=== PATIENT | male | born 1945 | race Hispanic/Latino ===

== ENCOUNTER 2019-04-12 08:47 | Emergency (ER) | payer OTHER ==
--- NOTE | 2019-04-12 10:23 | RAD REPORT ---
EXAM DESCRIPTION: CT - CTHCSPWOC - 04/12/2019 9:46 am CLINICAL HISTORY: fall, unwitnessed fall, head and neck injury, history of recent lumbar fracture COMPARISON: No comparisons TECHNIQUE: Axial 5 mm thick images of the head were obtained. Axial 2 mm thick images of the cervic al spine were obtained with sagittal and coronal reconstruction images generated and reviewed. All CT scans are performed using dose optimization technique as appropriate and may include automated exposure control or mA/KV adjustment according to patient size. FINDINGS: No intracranial hemorrhage, mass, edema or acute intracranial finding. No suspicion for ac [place] infarction. Patient has very advanced for age atrophy and chronic ischemic change. Ventricles are prominent but probably still in proportion to the amount of volume loss. Arterial and physiologic ca lcifications are present. Mastoid air cells and paranasal sinuses are clear. No globe or orbit abnorm ality seen. Prominent arterial calcifications are present. A very tortuous and ectatic basilar artery is seen. This is not an acute process. Cervical body height and alignment are normal. No disk space narrowing. No fracture or acute bony abn ormality. Prominent facet joint degenerative changes are present on the left at C3-4 Central canal de tail is inherently limited. No paraspinal mass or hematoma. The partially visualized esophagus is dilated and filled with but is presumed to be food content. Sma ll amount of this material is seen in the left-side piriform sinus. None of this food material is edgar omayra seen below the vocal cord level. The esophagus has an unusual configuration. No history of colon ic interposition or gastric pull-through procedure. IMPRESSION: Advanced atrophy and chronic ischemic change with no acute intracranial finding. Cervical spine degenerative change with no acute finding. Dilated esophagus is present filled with food material. There is food material along the posterior as pect of the lower oropharynx extending to the piriform sinus on the left. Aspiration risk is consider ed high. The dilated appearance is unusual. Correlation is needed with any esophageal surgical history. Esopha missy is only partially visualized.
--- NOTE | 2019-04-12 11:12 | RAD REPORT ---
EXAM DESCRIPTION: RAD - Pelvis - 04/12/2019 10:37 am CLINICAL HISTORY: fall, left hip and leg pain COMPARISON: Hip Left 2 View dated 04/12/2019 TECHNIQUE: AP imaging of the pelvis was obtained. FINDINGS: No fracture of the bony pelvis. SI joints and sacral ala show no suspicious findings. Alyse l content does somewhat obscure sacral ala assessment. Minimal pubic symphysis degenerative change no sae. No acute finding of the right hip joint. Left proximal femur shows intertrochanteric fracture. No dislocation of the femoral head. A femoral n deuce fracture is not seen. Fracture appears to be contained within the intertrochanteric region. No pa thologic component seen. IMPRESSION: Left femur intertrochanteric fracture.
--- NOTE | 2019-04-12 11:13 | RAD REPORT ---
EXAM DESCRIPTION: RAD - Hip Left 2 View - 04/12/2019 10:37 am CLINICAL HISTORY: fall, left-sided pelvic and hip pain COMPARISON: No comparisons FINDINGS: AP and cross-table lateral views were obtained. Proximal left femur fracture is present. This seen as an oblique intertrochanteric fracture that exte nds from the superolateral margin of the greater trochanter inferiorly extending 2 cm below the lesse r trochanter. No significant distraction or angulation deformity. The femoral head on the left is not dislocated and fracture of the neck is not seen. No pathologic bone changes are identifiable. No significant soft tissue finding. IMPRESSION: Left femur intertrochanteric fracture as detailed.
--- NOTE | 2019-04-12 12:16 | RAD REPORT ---
EXAM DESCRIPTION: Yves Single View04/12/2019 12:02 pm CLINICAL HISTORY: Chest pain COMPARISON: None FINDINGS: The lungs appear clear of acute infiltrate. The heart is mildly enlarged. Pacemaker leads are in place. Rectangular density overlies the left chest presumably overlying artifact
--- NOTE | 2019-04-12 12:17 | ER ---
Nurse's Notes [facility] Name: Barney De La Cruz Age: 73 yrs Sex: Male : 1945 Arrival Date: 04/12/2019 Time: 08:51 Bed 15 Private MD: Diagnosis: Intertrochanteric fracture of femur;Fall Presentation: 04/12 08:55 Presenting complaint: retirement reports unwitnessed fall from standing today, hb currently in rehab for recent lumbar fx, was not wearing back brace at time of fall. Outward rotation of left left noted. Pt AOx2 at baseline. Transition of care: patient was received from another setting of care (long-term care facility), [facility]. Onset of symptoms was April 12, 2019. Risk Assessment: Do you want to hurt yourself or someone else? Patient reports no desire to harm self or others. Care prior to arrival: None. 08:55 Method Of Arrival: EMS: [facility] 08:55 Acuity: JENARO 2 09:00 Mechanism of Injury: Fall from standing position. Trauma event details: Injury occurred ph in the [facility], Injury occurred: in an institution. Injury occurred: April 12, 2019. 10:02 Initial Sepsis Screen: Does the patient meet any 2 criteria? No. Patient's initial ph sepsis screen is negative. Does the patient have a suspected source of infection? No. Patient's initial sepsis screen is negative. Trauma Activation: Alert Physician: ED Physician; Name: ; Notified At: ; Arrived At: Physician: General Surgeon; Name: ; Notified At: ; Arrived At: Physician: Radiology; Name: ; Notified At: ; Arrived At: Physician: Respiratory; Name: ; Notified At: ; Arrived At: Physician: Lab; Name: ; Notified At: ; Arrived At: Historical: - Allergies: 12:47 Strawberries; ph - PMHx: 12:47 Dementia; Hypertension; Depression; ph - Immunization history:: Adult Immunizations up to date. - Coronavirus screen:: The patient has NOT traveled to [place] in the past 14 days. The patient has NOT had contact with known/suspected case of Coronavirus?. - Immunization history: Last tetanus immunization: unknown. - Social history:: Smoking status: unknown. - Ebola Screening: : No symptoms or risks identified at this time. Screenin:58 Abuse screen: Denies threats or abuse. Denies injuries from another. Nutritional ph screening: No deficits noted. Tuberculosis screening: No symptoms or risk factors identified. Fall Risk Fall in past 12 months (25 points). Secondary diagnosis (15 points) dementia, No IV (0 pts). Ambulatory Aid- None/Bed Rest/Nurse Assist (0 pts). Gait- Impaired (20 pts.). Mental Status- Overestimates/Forgets Limitations (15 pts.). Total Goldsmith Fall Scale indicates High Risk Score (45 or more points). Fall prevention measures have been instituted. Side Rails Up X 2 Placed Close to Nursing Station Frequent Obs/Assessments Occuring Family Present and informed to notify staff if the need to leave the bedside As available patient and family educated on Fall Prevention Program and Strategies. Primary Survey: 09:00 NO uncontrolled hemorrhage observed. A: The patient needs verbal stimulation to ph respond. Airway: patent, No supplemental oxygen in use on arrival. Oral cavity: clear, Trachea midline. Breathing/Chest: Respiratory pattern: regular, Respiratory effort: spontaneous, unlabored, Chest inspection: symmetrical rise and fall of the chest. Circulation: Skin color: pink, Skin temperature: warm, dry. Disability Alert. Exposure/Environment: There is no evidence of uncontrolled external bleeding. No obvious injuries are noted at this time. 11:00 Reassessment Airway Airway Patent Oxygen No O2 Breathing/Chest Respiratory pattern ph Regular Respiratory effort Spontaneous Unlabored Chest inspection Symmetrical Circulation Color [place] Temperature Warm Dry. Assessment: 09:00 General: Appears in no apparent distress. comfortable, Behavior is calm, cooperative. ph Pain: Complains of pain in left knee. Neuro: Oriented to. Neuro: Level of Consciousness is awake, alert, obeys commands, Oriented to person. Cardiovascular: Capillary refill < 3 seconds in bilateral fingers Patient's skin is warm and dry. Respiratory: Airway is patent Respiratory effort is even, unlabored, Respiratory pattern is regular, symmetrical. Derm: Skin is fragile, is thin, Skin is pink, warm \T\ dry. Musculoskeletal: Circulation, motion, and sensation intact. Range of motion: limited in left hip L leg noted to be shortened and outwardly rotated. 10:30 Reassessment: Patient appears in no apparent distress at this time. No changes from ph previously documented assessment. Patient and/or family updated on plan of care and expected duration. Pain level reassessed. 11:30 Reassessment: Patient appears in no apparent distress at this time. No changes from ph previously documented assessment. Patient and/or family updated on plan of care and expected duration. Pain level reassessed. 12:50 Reassessment: Patient appears in no apparent distress at this time. Patient and/or ph family updated on plan of care and expected duration. Pain level reassessed. Pt awake and alert, oriented to person only, report called to GLO Gasca at [facility], pt's daughter not at bedside to sign transfer paper and not found in [facility], will attempt to call her to make aware of pt's transfer. 13:40 Reassessment: Patient appears in no apparent distress at this time. No changes from ph previously documented assessment. Patient and/or family updated on plan of care and expected duration. Pain level reassessed. EMS at bedside for transfer, pt noted to be guarding L upper thigh and grimacing, pain medication administered prior to trnasfer. Vital Signs: 08:52 BP 91 / 73; Pulse 86; Resp 16; Temp 98.6; Pulse Ox 94% on R/A; Pain 0/10; em1 10:00 BP 98 / 77; Pulse 77; Resp 18; Pulse Ox 96% on R/A; ph 11:00 BP 101 / 64; Pulse 80; Resp 18; Pulse Ox 97% on R/A; ph 13:00 BP 98 / 60; Pulse 78; Resp 18; Pulse Ox 95% on R/A; ph Mary Coma Score: 09:00 Eye Response: to voice(3). Verbal Response: confused(4). Motor Response: obeys ph commands(6). Total: 13. 10:00 Eye Response: spontaneous(4). Verbal Response: confused(4). Motor Response: obeys ph commands(6). Total: 14. 11:00 Eye Response: spontaneous(4). Verbal Response: confused(4). Motor Response: obeys ph commands(6). Total: 14. 13:00 Eye Response: spontaneous(4). Verbal Response: confused(4). Motor Response: obeys ph commands(6). Total: 14. Trauma Score (Adult): 09:00 Eye Response: to voice(0); Verbal Response: confused(1); Motor Response: obeys ph commands(2); Systolic BP: > 89 mm Hg(4); Respiratory Rate: 10 to 29 per min(4); Mary Score: 13; Trauma Score: 11 10:00 Eye Response: spontaneous(1); Verbal Response: confused(1); Motor Response: obeys ph commands(2); Systolic BP: > 89 mm Hg(4); Respiratory Rate: 10 to 29 per min(4); Mary Score: 14; Trauma Score: 12 11:00 Eye Response: spontaneous(1); Verbal Response: confused(1); Motor Response: obeys ph commands(2); Systolic BP: > 89 mm Hg(4); Respiratory Rate: 10 to 29 per min(4); [place]ath Score: 14; Trauma Score: 12 13:00 Eye Response: spontaneous(1); Verbal Response: confused(1); Motor Response: obeys ph commands(2); Systolic BP: > 89 mm Hg(4); Respiratory Rate: 10 to 29 per min(4); [place]ath Score: 14; Trauma Score: 12 ED Course: 08:51 Patient arrived in ED. em1 08:58 Triage completed. hb 08:58 Arm band placed on. hb 09:08 Ilan Vargas PA is PHCP. jmm 09:08 Dustin Noriega MD is Attending Physician. jmm 09:30 Patient maintains SpO2 saturation greater than 95% on room air. Thermoregulation: warm ph blanket given to patient. 09:52 CT Head C Spine In Process Unspecified. EDMS 09:57 Jolynn Blanco, RN is Primary Nurse. ph 10:00 Maintain EMS IV. Dressing intact. Good blood return noted. Site clean \T\ dry. Patient ph transferred, IV remains in place. 10:01 Patient has correct armband on for positive identification. Placed in gown. Bed in low ph position. Call light in reach. Side rails up X 1. Pulse ox on. NIBP on. Door closed. Noise minimized. Warm blanket given. 10:48 Pelvis XRAY In Process Unspecified. EDMS 10:48 Hip Left 2 View XRAY In Process Unspecified. EDMS 11:50 Initiated transfer with Terri Caldera RN at [facility]. eb 12:01 X-ray completed. Portable x-ray completed in exam room. Patient tolerated procedure jb2 well. 12:06 administrative approval given by Terri Caldera RN/ patient has been accepted to [facility] ER/ Dr. Beth has accepted the patient without conference / report to be called to [phone]. 12:18 Chest Single View XRAY In Process Unspecified. EDMS 13:21 EKG done, by mri ct tech. reviewed by Dustin Noriega MD. tc 13:40 No provider procedures requiring assistance completed. ph Administered Medications: 13:40 Drug: Zofran 4 mg Route: IVP; Site: left antecubital; ph 13:45 Follow up: Response: No adverse reaction; Medication administered at discharge. ph 13:43 Drug: fentaNYL (PF) 25 mcg Route: IVP; Site: left antecubital; ph 13:45 Follow up: Response: No adverse reaction; Medication administered at discharge. ph Intake: 09:00 PO: 0ml; Total: 0ml. ph Output: 09:00 Urine: 0ml; Total: 0ml. ph Outcome: 12:15 ER care complete, transfer ordered by . [facility] 13:44 Patient left the ED. ph 13:44 Transferred by ground EMS [place]. to [facility], Transfer form completed. ph X-rays sent w/ patient. 13:44 Condition: stable 13:44 Patient's length of stay was not longer than 2 hours. Signatures: Dispatcher [employer] EDMS Ilan Vargas PA PA jmm Buechter, Jesse jb2 Martinez, Eric em1 Darcy Crabtree, coke inspector EKG [facility] Jolynn Blanco RN RN Paola Delcid RN RN Tara Cintron Corrections: (The following items were deleted from the chart) 08:59 08:55 Acuity: JENARO 3 hb hb
--- NOTE | 2019-04-12 12:18 | EDPHYS ---
Physician Documentation [facility] Name: Barney De La Cruz Age: 73 yrs Sex: Male : 1945 Arrival Date: 04/12/2019 Time: 08:51 Bed 15 Private MD: ED Physician Dustin Noriega HPI: 04/12 09:20 This 73 yrs old Male presents to ER via EMS with complaints of fall, leg pain. jmm 09:20 Details of fall: The patient fell from an upright position, while walking. Onset: The jmm symptoms/episode began/occurred acutely, just prior to arrival. Associated injuries: The patient sustained injury to the head, leg. This is a 73 year old male with a history of dementia, HTN, depression that presents to the ED with left leg pain. According to the daughter, the patient was standing up at his ch[facility] without using his walker, the patient then fell onto his left side. Patient was currently recovering from lumbar compression fracture. . Historical: - Allergies: 12:47 Strawberries; ph - PMHx: 12:47 Dementia; Hypertension; Depression; ph - Immunization history:: Adult Immunizations up to date. - Coronavirus screen:: The patient has NOT traveled to [place] in the past 14 days. The patient has NOT had contact with known/suspected case of Coronavirus?. - Immunization history: Last tetanus immunization: unknown. - Social history:: Smoking status: unknown. - Ebola Screening: : No symptoms or risks identified at this time. ROS: 09:20 Constitutional: Negative for fever, chills, and weight loss, Cardiovascular: Negative jmm for chest pain, palpitations, and edema, Respiratory: Negative for shortness of breath, cough, wheezing, and pleuritic chest pain. 09:20 MS/extremity: Positive for injury or acute deformity, pain. 09:20 All other systems are negative. Exam: 09:20 Constitutional: This is a well developed, well nourished patient who is awake, alert, jmm and in no acute distress. Head/Face: atraumatic. Eyes: EOMI, no conjunctival erythema appreciated ENT: Moist Mucus Membranes Neck: Trachea midline, Supple Chest/axilla: Normal chest wall appearance and motion. Cardiovascular: Regular rate and rhythm. No edema appreciated Respiratory: Normal respirations, no respiratory distress appreciated Abdomen/GI: Non distended, soft Back: Normal ROM Skin: General appearance color normal 09:20 Musculoskeletal/extremity: left knee and hip pain noted on palpation. left leg is externally rotated, compartments are soft, NVI. 09:20 Skin: Appearance: Color: normal in color. 09:20 Neuro: Motor: is normal. 09:20 Psych: Behavior/mood is pleasant, cooperative. Vital Signs: 08:52 BP 91 / 73; Pulse 86; Resp 16; Temp 98.6; Pulse Ox 94% on R/A; Pain 0/10; em1 10:00 BP 98 / 77; Pulse 77; Resp 18; Pulse Ox 96% on R/A; ph 11:00 BP 101 / 64; Pulse 80; Resp 18; Pulse Ox 97% on R/A; ph 13:00 BP 98 / 60; Pulse 78; Resp 18; Pulse Ox 95% on R/A; ph [place] Coma Score: 09:00 Eye Response: to voice(3). Verbal Response: confused(4). Motor Response: obeys ph commands(6). Total: 13. 10:00 Eye Response: spontaneous(4). Verbal Response: confused(4). Motor Response: obeys ph commands(6). Total: 14. 11:00 Eye Response: spontaneous(4). Verbal Response: confused(4). Motor Response: obeys ph commands(6). Total: 14. 13:00 Eye Response: spontaneous(4). Verbal Response: confused(4). Motor Response: obeys ph commands(6). Total: 14. Trauma Score (Adult): 09:00 Eye Response: to voice(0); Verbal Response: confused(1); Motor Response: obeys ph commands(2); Systolic BP: > 89 mm Hg(4); Respiratory Rate: 10 to 29 per min(4); Mary Score: 13; Trauma Score: 11 10:00 Eye Response: spontaneous(1); Verbal Response: confused(1); Motor Response: obeys ph commands(2); Systolic BP: > 89 mm Hg(4); Respiratory Rate: 10 to 29 per min(4); Mary Score: 14; Trauma Score: 12 11:00 Eye Response: spontaneous(1); Verbal Response: confused(1); Motor Response: obeys ph commands(2); Systolic BP: > 89 mm Hg(4); Respiratory Rate: 10 to 29 per min(4); [place] Score: 14; Trauma Score: 12 13:00 Eye Response: spontaneous(1); Verbal Response: confused(1); Motor Response: obeys ph commands(2); Systolic BP: > 89 mm Hg(4); Respiratory Rate: 10 to 29 per min(4); Mary Score: 14; Trauma Score: 12 MDM: 09:16 Patient medically screened. [facility] 12:14 Data reviewed: vital signs, nurses notes. Counseling: I had a detailed discussion with [facility] the patient and/or guardian regarding: the historical points, exam findings, and any diagnostic results supporting the discharge/admit diagnosis, radiology results, the need to transfer to another facility. ED course: Transfer Accepted by Dr. Lu without consultation. 04/12 11:21 Order name: CBC with Diff; Complete Time: 13:05 [facility] 04/12 11:21 Order name: CMP; Complete Time: 13:05 [facility] 04/12 09:17 Order name: CT Head C Spine; Complete Time: 10:40 [facility] 04/12 09:17 Order name: Pelvis XRAY; Complete Time: 11:57 [facility] 04/12 09:17 Order name: Hip Left 2 View XRAY; Complete Time: 11:57 [facility] 04/12 12:59 Order name: CBC Smear Scan; Complete Time: 13:05 [facility] 04/12 11:21 Order name: Saline Lock; Complete Time: 12:33 [facility] 04/12 11:48 Order name: Chest Single View XRAY; Complete Time: 13:14 [facility] 04/12 11:57 Order name: EKG - Nurse/Tech; Complete Time: 19:45 [facility] Administered Medications: 13:40 Drug: Zofran 4 mg Route: IVP; Site: left antecubital; ph 13:45 Follow up: Response: No adverse reaction; Medication administered at discharge. ph 13:43 Drug: fentaNYL (PF) 25 mcg Route: IVP; Site: left antecubital; ph 13:45 Follow up: Response: No adverse reaction; Medication administered at discharge. ph Disposition: 14:18 Co-signature as Attending Physician, Dustin Noriega MD I agree with the assessment and kdr plan of care. Disposition: 04/12/19 12:15 Transfer ordered to [facility]. Diagnosis are Intertrochanteric fracture of femur, Fall. - Reason for transfer: Higher level of care. - Accepting physician is Dr. Lu. - Condition is Stable. - Problem is new. - Symptoms are unchanged. Signatures: Dispatcher [employer] EDMS Dustin Noriega MD MD kdr Mickail, Joel, PA PA Jolynn Louis RN RN ph Corrections: (The following items were deleted from the chart) 13:44 12:15 04/12/2019 12:15 Transfer ordered to [facility]. Diagnosis is ph Intertrochanteric fracture of femur; Fall. Reason for transfer: Higher level of care. Accepting physician is Dr. Lu. Condition is Stable. Problem is new. Symptoms are unchanged. liam
[2019-04-12 12:21] LABS: Absolute Lymphocytes (CBC) 0.7 K/uL (0.7-4.9); Basophils % 0.4 % (0-1.3); Hematocrit 37.5 % (39.6-49.0); Lymphocytes % 7.1 % (15.3-44.8); MPV 7.9 fL (7.6-11.3); RBC Red Blood Cell Count 4.46 M/uL (4.33-5.43)
[2019-04-12 12:36] LABS: Albumin 2.8 g/dL (3.4-5.0); Bilirubin Total 0.5 mg/dL (0.2-1.0)
[2019-04-12 12:58] LABS: Urine White Blood Cell Casts OK
[2019-04-12 12:59] LABS: Blood Morphology Comment NOT SEEN (NOT SEEN); Platelet Estimate ADEQ
[2019-04-12] MEDS ORDERED: FENTANYL CITR 100 MCG/2 ML ONE (13:39)
[2019-04-12] MEDS ORDERED: ONDANSETRON 4 MG/2 ML VIAL ONE (13:39)
[2019-04-12 15:42] VITALS: TEMP 98.6
[2019-04-12 15:46] VITALS: BP 98/60; O2SAT 95
--- NOTE | 2019-04-13 16:30 | EKG ---
Test Date: 2019-04-12 Test Time: 13:11:14 Barking Machine Feeder: ESTEFANIA MEASUREMENT RESULTS: Intervals: Rate: 96 IA: 168 QRSD: 120 QT: 422 QTc: 533 [place]: P: 20 IA: 168 QRS: 78 T: 259 INTERPRETIVE STATEMENTS: Demand pacemaker, interpretation is based on intrinsic rhythm Sinus rhythm with premature ventricular complexes or fusion complexes Incomplete left bundle branch block Marked ST abnormality, possible lateral subendocardial injury Abnormal ECG No previous ECG available for comparison Electronically Signed On 04-13-19 16:27:48 [employer]LINDER STEAMER by Jonathon Jeffries
== END 2019-04-12 13:44 | disposition short-term general hospital (02) ==
LOC: ER 08:47
DX: S72.142A Displaced intertrochanteric fracture of left femur, initial encounter for closed fracture (principal); W17.89XA Other fall from one level to another, initial encounter; Y93.01 Activity, walking, marching and hiking; Z91.018 Allergy to other foods; Y92.129 Unspecified place in nursing home as the place of occurrence of the external cause; I10 Essential (primary) hypertension; F03.90 Unspecified dementia, unspecified severity, without behavioral disturbance, psychotic disturbance, mood disturbance, and anxiety
CPT/HCPCS: 93005; 85025; 36415; 80053; 70450; 72125; 71045; 72170; 73502; 96375; 96374; 99285; J3010; J2405